=== PATIENT | male | born 1985 | race Caucasian/White ===

== ENCOUNTER 2017-01-05 19:09 | Emergency (ER) | payer SELFPAY ==
[~2017-01-05] VITALS: Ht 177.8 cm; Wt 74.8 kg
[~2017-01-05 19:09] MED LIST: FLUO20CA9 PO; OLAN10TA2 PO
[2017-01-05] MEDS ORDERED: FLUoxetine 10 MG CAP PO ONE (20:15)
[2017-01-05] MEDS ORDERED: OLANZapine 10 MG TAB PO ONE (20:15)
[2017-01-05] MEDS ORDERED: OLAN10TA2 PO (20:25)
[2017-01-05] MEDS ORDERED: FLUO20CA9 PO (20:25)
[2017-01-05 20:31] VITALS: BP 126/81
== END 2017-01-05 20:32 | disposition home or self-care (01) ==
LOC: M ED 20:19
DX: Z76.0 Encounter for issue of repeat prescription (principal); Z91.14 Patient's other noncompliance with medication regimen

== ENCOUNTER 2017-01-09 13:01 | Inpatient (IN) | payer OTHER, SELFPAY ==
[~2017-01-09] VITALS: Ht 180.3 cm; Wt 80.9 kg
--- NOTE | 2017-01-09 13:57 | REP ---
Head CT without contrast: History: Altered mental status. Comparison study: May 14, 2016. CT findings: Bone window settings demonstrate an intact bony calvarium. There is no evidence of skull fracture or incidental bony calvarial lesion. The visualized paranasal sinuses appear clear. No intraorbital abnormality is seen. On soft tissue window setting images; the lateral, third, and fourth ventricles are normal in size and position. Lei-white differentiation pattern is normal above and below the tentorium. There are is no evidence of intracranial hemorrhage. No mass, edema, infarction, or midline shift is seen. No extra-axial fluid collection is appreciated. Impression: Negative noncontrast head CT. Signed by yTler Boston MD 01/09/2017 01:49 P
[2017-01-09 14:03] LABS: MEAN CORPUSCULAR HEMOGLOBIN 32.5 pg (27.0-33.0); MEAN CORPUSCULAR HGB CONC 35.7 g/dl (32.0-36.5); MEAN CORPUSCULAR VOLUME 90.9 fl (80.0-96.0); WHITE BLOOD COUNT 6.1 K/mm3 (4.0-10.0)
[2017-01-09 14:29] LABS: METHADONE URINE NEGATIVE (NEGATIVE)
[2017-01-09 14:37] LABS: ALBUMIN 4.8 GM/DL (3.2-5.2); ALBUMIN/GLOBULIN RATIO 1.41 (1.00-1.93); ALKALINE PHOSPHATASE 61 U/L (45-117); ALT/SGPT 22 U/L (12-78); ANION GAP 9 MEQ/L (8-16); AST/SGOT 20 U/L (15-37); BILIRUBIN,DIRECT 0.3 MG/DL (0.0-0.2); BILIRUBIN,TOTAL 1.3 MG/DL (0.2-1.0); BLOOD UREA NITROGEN 23 MG/DL (7-18); CALCIUM LEVEL 9.7 MG/DL (8.5-10.1); CARBON DIOXIDE LEVEL 28 MEQ/L (21-32); CHLORIDE LEVEL 103 MEQ/L (98-107); CREATININE FOR GFR 1.23 MG/DL (0.70-1.30); GLOMERULAR FILTRATION RATE > 60.0 (>60); GLUCOSE, FASTING 96 MG/DL (70-105); POTASSIUM SERUM 4.4 MEQ/L (3.5-5.1); SODIUM LEVEL 140 MEQ/L (136-145); TOTAL PROTEIN 8.2 GM/DL (6.4-8.2)
[2017-01-09] MEDS ORDERED: CIPROFLOXACIN 500 MG TAB PO ONE (23:45)
[2017-01-10] MEDS ORDERED: FLUoxetine 10 MG CAP PO ONE (08:15)
[2017-01-10] MEDS ORDERED: SERTRALINE HCL 50 MG TAB PO ONE (09:00)
[2017-01-10] MEDS ORDERED: MAALOX 30 ML SUSP *UDC PO PRN (12:00)
[2017-01-10] MEDS ORDERED: ACETAMINOPHEN TAB 650MG DOSE (2X325MG) PO PRN (12:00)
[2017-01-10] MEDS ORDERED: traZODone 50 MG TAB PO PRN (12:00)
[2017-01-10] MEDS ORDERED: LORazepam 1 MG TAB PO PRN (12:00)
[2017-01-10] MEDS ORDERED: MOM 30ML SUSPENSION UDC PO PRN (12:00)
[2017-01-10] MEDS ORDERED: FLUO10TA2 PO (12:26)
[2017-01-10] MEDS ORDERED: OLAN10TA2 PO (12:26)
[2017-01-10 14:30] VITALS: BP 136/79
--- NOTE | 2017-01-10 20:09 | ECGEPIP ---
Stationary ECG Study [facility] - ED Test Date: 2017-01-09 Pat Name: DEBBIE RUSSELL Department: Room: - Gender: M Vp Communications: LIDIA : [id number] Requested By: Rukhsana Castano Order Number: [id number] Reading MD: Hai Cross Measurements Intervals Elmer Rate: 57 P: 57 ME: 96 QRS: 64 QRSD: 98 T: 33 QT: 415 QTc: 406 Interpretive Statements SINUS BRADYCARDIA WITH SHORT ME INTERVAL ST ELEVATION DIFFUSE - PROBABLY EARLY REPOLARIZATION 05/16/16 - RATAE DECREASED Electronically Signed On 01-10-2017 20:09:26 EDT by Hai Cross
[2017-01-11 06:34] VITALS: BP 143/77
[2017-01-11] MEDS ORDERED: SERTRALINE HCL 50 MG TAB PO SCH (09:00)
--- NOTE | 2017-01-11 09:39 | HPEPDOC ---
Medical History and Physical Date of Admission January 10, 2017 at 11:55 History and Physical PCP: FLOR De La O. ATTENDING: Dr. Keon Espinoza HPI: 31yoM admitted to [facility] for MDD with psychosis, being medically examined today. Patient is slow to answer questions, but does provide limited history. Is also taken from the chart, as per records he has been noncompliant with his medications for several weeks. He reports no acute medical complaints today. Denies any fevers, chills, weakness, fatigue, HERNÁNDEZ, CP, SOB, cough, palpitations, abdominal pain, N/V/D or changes in bowel or bladder habits. PMHx: MDD with psychotic features PTSD Dissociative amnesia History of concussion 2015 Right lower extremity fracture PSHX: Right inguinal hernia repair [place] teeth extraction SOCHX: Resides in: [facility] Marital Status: Kids: 2 Employment: Reservist, [employer]. Tobacco use: Denies ETOH: Denies Illicit Drugs: Denies IV Drug Use: Denies Tattoos done unprofessionally: Denies FAMHX: Mother: Alive, well Father: Alive, well Siblings: Alive, well Children: Alive, well Unexpected deaths due to medical reasons: None. ROS: As noted in HPI, otherwise 11pt ROS of systems reviewed and unremarkable. PE: GEN: 31yoM, appears stated age. Well-nourished, well developed. No acute distress. Alert. Oriented to PPT. Pt is slow to answer questions, easily distracted. HEENT: Normocephalic, atraumatic. Pupils are equal, round, and reactive to light. Extraocular movements are intact. No nystagmus appreciated. Sclera are nonicteric. Conjunctiva without injection. Nose midline. Nasal turbinates without bogginess. EACs both patent BL. TMs both visualized and jackson with good cone of light, no bulging or erythema. No facial asymmetry. Moist mucous membranes. Dentition fair. Pharynx pink and moist, no cobblestoning. Neck supple , trachea midline. No lymphadenopathy or thyromegaly appreciated. CHEST: Regular rate and rhythm, +S1, +S2 LUNGS: Clear to auscultation bilaterally. No wheezes, rales, or rhonchi. Breathing appears symmetric and easy. Patient is speaking in full sentences. No accessory muscle use. ABD: Round, soft, non-tender, non-distended. +Bowel sounds throughout. No rebound or guarding. No costovertebral angle tenderness. EXT: Pulses 2+ bilaterally dorsalis pedis and radial. No lower extremity edema appreciated. SKIN: [place], dry, warm. Capillary refill <2sec. No rashes. NEURO: Alert and oriented x 3. Cranial nerves III-XII are intact. No focal deficits appreciated. EK01/09/17 SINUS BRADYCARDIA WITH SHORT CA INTERVAL ST ELEVATION DIFFUSE - PROBABLY EARLY REPOLARIZATION CT brain 05/14/16. No acute changes. MRI Brain 05/16/16. No gross abnormality. Significantly limited exam A&P: 31yoM admitted to [facility] for MDD with psychosis 1. Psych. Plan per Psychiatry. EKG on file. CT brain 05/19 was completed indicating no acute changes. MRI Brain 05/19 no gross abnormality, limited exam. 2. Follow up with PCP on discharge. 3. Fahad system safety manager present throughout exam. Vital Signs Vital Signs Date Time Temp Pulse Resp B/P (MAP) Pulse Ox O2 Delivery O2 Flow Rate FiO2 01/11/17 06:34 99.1 78 78 143/77 (99) 01/10/17 14:12 97 Room Air Laboratory Data Labs 24H Item Value Date Time Sodium Level 140 MEQ/L 01/09/17 1351 Potassium Level 4.4 MEQ/L 01/09/17 1351 Chloride Level 103 MEQ/L 01/09/17 1351 Carbon Dioxide Level 28 MEQ/L 01/09/17 1351 Anion Gap 9 MEQ/L 01/09/17 1351 Blood Urea Nitrogen 23 MG/DL H 01/09/17 1351 Creatinine 1.23 MG/DL 01/09/17 1351 Glomerular Filtration Rate > 60.0 01/09/17 1351 Fasting Glucose 96 MG/DL 01/09/17 1351 Calcium Level 9.7 MG/DL 01/09/17 1351 Total Bilirubin 1.3 MG/DL H 01/09/17 1351 Direct Bilirubin 0.3 MG/DL H 01/09/17 1351 Aspartate Amino Transf (AST/SGOT) 20 U/L 01/09/17 1351 Alanine Aminotransferase (ALT/SGPT) 22 U/L 01/09/17 1351 Alkaline Phosphatase 61 U/L 01/09/17 1351 Ammonia 20 uMOL/L 01/09/17 1351 Total Protein 8.2 GM/DL 01/09/17 1351 Albumin 4.8 GM/DL 01/09/17 1351 Albumin/Globulin Ratio 1.41 01/09/17 1351 Thyroid Stimulating Hormone (TSH) 0.794 uIU/ML 01/09/17 1351 White Blood Count 6.1 K/mm3 01/09/17 1351 Red Blood Count 5.23 M/mm3 01/09/17 1351 Hemoglobin 17.0 g/dl 01/09/17 1351 Hematocrit 47.5 % 01/09/17 1351 Mean Corpuscular Volume 90.9 fl 01/09/17 1351 Mean Corpuscular Hemoglobin 32.5 pg 01/09/17 1351 Mean Corpuscular Hemoglobin Concent 35.7 g/dl 01/09/17 1351 Red Cell Distribution Width 13.0 % 01/09/17 1351 Platelet Count 248 k/mm3 01/09/17 1351 Salicylates Level < 1.7 MG/DL L 01/09/17 1351 Urine Opiates Screen NEGATIVE 01/09/17 1351 Urine Methadone Screen NEGATIVE 01/09/17 1351 Acetaminophen Level < 2.0 UG/ML L 01/09/17 1351 Urine Barbiturates Screen NEGATIVE 01/09/17 1351 Urine Phencyclidine Screen NEGATIVE 01/09/17 1351 Urine Amphetamines Screen NEGATIVE 01/09/17 1351 Urine Benzodiazepines Screen NEGATIVE 01/09/171 Urine Cocaine Metabolite Screen NEGATIVE 01/09/17 1351 Urine Cannabinoids Screen NEGATIVE 01/09/171 Ethyl Alcohol Level < 0.003 % 01/09/17 1351 Home Medications Scheduled Fluoxetine HCl (Fluoxetine HCl) 10 Mg Tab, 30 MG PO DAILY Olanzapine (Olanzapine) 10 Mg Tab, 10 MG PO QHS Allergies Coded Allergies: Sulfa Drugs (Verified Allergy, Mild, RASH, 01/05/17) Sulfa Drugs Cross Reactors (Verified Allergy, Mild, RASH, 01/05/17) Ibeth Anaya January 11, 2017 09:39
[2017-01-11] MEDS: risperiDONE 2 MG TAB PO SCH ×2 (10:27→21:21)
[2017-01-11] MEDS: FLUoxetine 20 MG CAP PO SCH (10:28)
[2017-01-11 18:00] VITALS: BP 143/70
--- NOTE | 2017-01-11 21:03 | MHHPE ---
DATE OF ADMISSION: 01/10/2017 LEGAL STATUS AT ADMISSION: 9.39 legal status. 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 Patient was admitted in our unit on a 9.39 legal status. According to the chart, patient was to be evaluated at the [place] [facility] but they had problems finding the patient, they were originally unable to locate him. It is reported by the that the patient has been exhibiting increasingly bizarre behavior over the last several days. He has been noncompliant with the medication for several weeks. She reported that he was lying on the ground, curled up, and screaming incoherently. His stated that he has not slept in 3 days, has not been eating, and that he wanders off in a state of confusion. During the interview, patient is described as staring blankly and barely able to answer questions. They were unable to fully assess the patient and appeared to be responding to internal stimuli with delayed answers to the questions. Here in the unit, patient continues to display thought blocking with significant delays in response, but he is able to tell that he has been having auditory hallucinations for about a week. It is difficult for him to describe the voices, but some examples are "pick it up," "move faster." The patient denies command auditory hallucinations of telling him to kill himself or other people. The patient also admits that he is afraid that he may be hurt by "people" but he is not sure who these people would be. Patient also admits to hear voices of "moravian content" or "screwed up things." Patient was partially cooperative during the interview. He was distressed and scanning the surroundings. The patient appeared to be responding to internal stimuli. When asked about feelings of depression, he says that he has been feeling depressed for the last 2 weeks, feeling sorry for himself, with low energy, low appetite. He says that his sleep is okay and his self-esteem is fine. He denies any suicidal thoughts. Patient also reported that he stopped taking his medication around 3 months ago because of "weight gain" and also "feeling better." Patient is displaying psychomotor retardation and blunted affect. Patient is unable to provide many details of the history since he is actively psychotic and has significant delay on every response and also has thought blocking. Some of the information is gathered from the chart and history provided from relatives. PAST MEDICAL HISTORY: Patient denied any acute medical problems. ALLERGIES: SULFA. PAST PSYCHIATRIC HISTORY: As above, patient has been diagnosed with major depressive disorder with psychotic features. This is his fourth psychiatric admission to our facility. He has been diagnosed with PTSD and dissociative amnesia by the [place] [facility] as stated in the chart. SOCIAL HISTORY: Patient is a poor historian. Displaying thought blocking. He was born in [place]. He has moved around frequently because his parents were in the . Reported normal childhood. He graduated high school and joined the [employer] at age 18. Patient denied any history of traumatic events, like sexual, physical, or emotional abuse. SUBSTANCE ABUSE HISTORY: Patient denies any current or past problems with drugs or alcohol. Patient is now in the [employer]. He is and has a supportive . REVIEW OF SYSTEMS: CONSTITUTIONAL; No weight loss, fever, chills, weakness, or fatigue. HEENT: No visual loss, blurry vision, double vision, or yellow sclerae. No hearing loss, sneezing, congestion, runny nose, or sore throat. SKIN: No rash or itching. CARDIOVASCULAR: No chest pain, chest pressure, chest discomfort, palpitations, or edema. RESPIRATORY: No shortness of breath, cough, or sputum. GASTROINTESTINAL (GI): No anorexia, nausea, vomiting, or diarrhea. No abdominal pain or blood. GENITOURINARY (): No burning or pain on urination. NEUROLOGICAL: No headache, dizziness, syncope, paralysis, ataxia, numbness, or tingling. MUSCULOSKELETAL: No muscle, back pain, joint pain, or stiffness. HEMATOLOGIC: No anemia, bleeding, or bruising. LYMPHATICS: No history of splenectomy. ENDOCRINOLOGIC: No reports or sweating, cold or heat intolerance. No polyuria or polydipsia. ALLERGIES: No history of asthma, hives, eczema, or rhinitis. Patient is allergic to SULFA. LABORATORY DATA: At admission: CBC is unremarkable. CMP within normal limits except BUN of 23, total bilirubin of 1.3, direct bilirubin of 0.3, rest within normal limits. TSH within normal limits. Urine drug screen (UDS) is negative. Blood alcohol level is negative. MENTAL STATUS EXAMINATION: Patient is dressed in [facility]. Patient is cooperative, but guarded, distressed, reacting to internal stimuli, displaying thought blocking. Mood is depressed and anxious. Affect is blunted. Patient is oriented to time, place, person and situation. Attention and concentration is poor. Memory cannot be tested. Thought process, as above, patient is displaying thought blocking. Patient admits to paranoia, patient also admits to auditory hallucinations. Patient denies homicidal or suicidal ideation. Judgment and insight are poor. DIAGNOSES: AXIS I: Major depressive disorder with psychotic features. AXIS II: Deferred. AXIS III: None acute. INITIAL TREATMENT PLAN: Patient was admitted on a 9.39 legal status. Complete history was obtained. With his permission, family will be contacted and database will be expanded. His medication regimen will be reviewed and changed accordingly. He will be provided with protected environment. He will be treated with individual, group, and milieu therapies. He will also receive supportive psychoeducation. Discharge planning will commence immediately. Length of stay will be between 7-10 days. Outpatient followup will be strongly recommended. The treatment plan will focus initially on depression, risk for suicide, altered thoughts, altered perceptions.
[2017-01-11] MEDS: QUEtiapine FUMARATE 25 MG TAB PO SCH (21:21)
[2017-01-12 06:13] VITALS: BP 139/74
[2017-01-12] MEDS: risperiDONE 2 MG TAB PO SCH ×2 (08:20→20:34)
[2017-01-12] MEDS: FLUoxetine 20 MG CAP PO SCH (08:20)
[2017-01-12 18:00] VITALS: BP 109/57
[2017-01-12] MEDS: QUEtiapine FUMARATE 25 MG TAB PO SCH (20:34)
--- NOTE | 2017-01-12 21:25 | IPN ---
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 The patient also has been diagnosed of posttraumatic stress disorder (PTSD) and dissociative amnesia at the [facility]. The patient was paranoid, psychotic and having auditory hallucinations. The patient is responding to internal stimuli and displaying thought blocking. SUBJECTIVE: "I am about the same." OBJECTIVE: There are no changes from yesterday at admission, although it seems that the degree of thought blocking has decreased. The patient continues to have auditory hallucinations and has reported mild nausea secondary to the medication. MENTAL STATUS EXAMINATION: The patient is dressed in [facility]. The patient is cooperative. Has poor eye contact. Speech is slow with thought blocking. Mood is depressed. Affect is blunted. The patient reports auditory hallucinations. The patient continues to feel some degree of paranoia and danger in the unit. The patient is able to contract for safety. The patient's concentration and memory are affected. Insight and judgment are poor. ASSESSMENT: Major depressive disorder with psychotic features. PLAN: 1. Continue Prozac 20 mg by mouth every morning. 2. Continue with Risperdal 2 mg by mouth twice a day. 3. Continue with Seroquel 25 mg by mouth at bedtime. 4. Continue close monitoring.
[2017-01-13 06:40] VITALS: BP 117/68
[2017-01-13] MEDS: risperiDONE 2 MG TAB PO SCH ×2 (08:43→21:00)
[2017-01-13] MEDS: FLUoxetine 20 MG CAP PO SCH (08:43)
[2017-01-13 18:00] VITALS: BP 112/58
[2017-01-13] MEDS: QUEtiapine FUMARATE 25 MG TAB PO SCH (21:00)
[2017-01-14 06:23] VITALS: BP 111/60
[2017-01-14] MEDS: FLUoxetine 20 MG CAP PO SCH (08:12)
[2017-01-14] MEDS: risperiDONE 2 MG TAB PO SCH ×2 (08:12→20:53)
--- NOTE | 2017-01-14 13:01 | IPN ---
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 The patient also has been diagnosed of posttraumatic stress disorder (PTSD) and dissociative amnesia at [facility]. The patient was paranoid, psychotic, having auditory hallucinations. The patient is responding to internal stimuli and displaying thought blocking. SUBJECTIVE: "I am feeling a little better." OBJECTIVE: The patient is improving very slowly. His thought blocking is decreasing. The latency between question and answer has decreased significantly. The patient continues to have auditory hallucinations, although the psychotic symptoms are decreasing. No side effects from medication. MENTAL STATUS EXAMINATION: The patient is dressed in [facility]. The patient is cooperative. Has poor eye contact. Speech is slow and monotone with thought blocking. Affect is blunted. The patient continues to report auditory hallucinations, although they are decreasing. The patient is less paranoid. The patient is able to contract for safety. The patient's concentration and memory are impaired. Insight and judgment are poor. ASSESSMENT: Major depressive disorder with psychotic features. PLAN: 1. Continue with Prozac 20 mg by mouth every morning. 2. Continue with Risperdal 2 mg by mouth twice a day. 3. Continue with Seroquel 25 mg by mouth nightly. 4. Continue with medication management, individual and group therapy.
[2017-01-14 18:00] VITALS: BP 114/56
[2017-01-14] MEDS: QUEtiapine FUMARATE 25 MG TAB PO SCH (20:53)
[2017-01-15 06:29] VITALS: BP 137/70
[2017-01-15] MEDS: FLUoxetine 20 MG CAP PO SCH (08:40)
[2017-01-15] MEDS: risperiDONE 2 MG TAB PO SCH ×2 (08:40→20:24)
[2017-01-15 18:00] VITALS: BP 129/60
--- NOTE | 2017-01-15 18:45 | IPN ---
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 The patient has been diagnosed with posttraumatic stress disorder (PTSD) and is a patient at the [facility]. The patient was paranoid, psychotic, having auditory hallucinations. The patient was responding to internal stimuli and displaying thought blocking. SUBJECTIVE: "I am feeling a little better." OBJECTIVE: The patient (mumbled dictation). Denies side effects from the medication. MENTAL STATUS EXAMINATION: The patient is dressed in [facility]. The patient is cooperative, has fair eye contact. Speech is slow and monotone with minimal thought blocking. Affect is blunted. The patient continues to be somewhat guarded but reports does not feel paranoid and denies auditory or visual hallucinations. The patient is able to contract for safety during the interview. Insight and judgment are poor. ASSESSMENT: 1. Major depressive disorder with psychotic features. PLAN: 1. Continue with Prozac 20 mg by mouth in the morning. 2. Risperdal 2 mg by mouth twice a day. 3. Discontinue Seroquel 25 mg by mouth at night. 4. Continue close observation.
--- NOTE | 2017-01-15 18:58 | IPN ---
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 Patient has been diagnosed of posttraumatic stress disorder (PTSD) and disassociative amnesia at [facility] Patient was paranoid, psychotic, having auditory hallucinations. Patient was responding to internal stimuli and displaying though blocking. SUBJECTIVE: "I'm feeling better." OBJECTIVE: Patient continues to improve slowly. His thought blocking is improved. Patient denies any auditory hallucinations for the last 24 hours. He denies side effects from the medication. Patient reports is sleeping well with the help of the treatment. MENTAL STATUS EXAMINATION: Patient is dressed in [facility]. Patient is cooperative, has fair eye contact. Speech is slow and monotone. Mood is depressed and anxious. Affect is restricted. Patient is denying auditory or visual hallucinations. No evidence of paranoid delusions. Memory is fair. Patient is fully oriented. Associations are intact. Thinking is logical. Thought content is appropriate. Patient is able to contract for safety and denies suicidal or homicidal ideation. Insight and judgment is fair. ASSESSMENT: Major depressive disorder. PLAN: 1. Continue with 2. Continue with Prozac 20 mg by mouth every morning. 3. Continue with Risperdal 2 mg by mouth twice a day. 4. Continue monitoring/continue medication management, individual and group therapy.
[2017-01-16 06:20] VITALS: BP 113/58
[2017-01-16] MEDS: risperiDONE 2 MG TAB PO SCH ×2 (08:47→20:16)
[2017-01-16] MEDS: FLUoxetine 20 MG CAP PO SCH (08:47)
--- NOTE | 2017-01-16 15:28 | IPN ---
DATE: 01/16/2017 A 32-year-old male admitted to our unit with psychotic symptoms and paranoia. The patient was having auditory hallucination. The patient was also responding to internal stimuli. SUBJECTIVE: "I'm feeling better." OBJECTIVE: The patient is improving slowly. His thought blocking has significantly improved from admission. His delay from question to answer is close to normal. The patient is denying auditory or visual hallucinations during the interview. The patient is denying side effects from the medication. MENTAL STATUS EXAMINATION: The patient is dressed in [facility]. The patient is cooperative. He has fair eye contact. Speech is slow and monotone. Mood is depressed and anxious. Affect is restricted. The patient is denying auditory or visual hallucinations. There are no feelings of paranoia. Memory is fair. The patient is fully oriented. Associations are intact. Thinking is logical. Thought content is appropriate. The patient is able to contract for safety during the interview. Insight and judgment is fair. ASSESSMENT: Major depressive disorder with psychotic features. PLAN: 1. Continue Prozac 20 mg by mouth in the morning. 2. Continue Risperdal 2 mg by mouth twice a day. 3. Continue medication management, individual and group therapy.
[2017-01-16 18:21] VITALS: BP 134/70
[2017-01-17 06:22] VITALS: BP 123/63
[2017-01-17] MEDS: risperiDONE 2 MG TAB PO SCH ×2 (08:51→20:28)
[2017-01-17] MEDS: FLUoxetine 20 MG CAP PO SCH (08:51)
[2017-01-17 18:13] VITALS: BP 108/59
--- NOTE | 2017-01-17 22:33 | IPN ---
DATE: 01/17/2017 A 32-year-old male admitted to our unit with psychotic symptoms and paranoia. The patient was also having auditory hallucination and responding to internal stimuli. SUBJECTIVE: "I'm feeling better." OBJECTIVE: The patient is improving slowly. His affect and facial expression are blunted. The patient reports improvement from paranoia. The patient is denying auditory hallucinations. The patient admits that he was afraid that somebody can harm him when he came to the hospital. The patient is more comfortable. Affect is restricted. No auditory or visual hallucinations. The patient's paranoia has improved. Memory is fair. The patient is fully oriented. The patient is able to contract for safety during the interview. Insight and judgment is fair. ASSESSMENT: Major depressive disorder with psychotic features. PLAN: 1. Continue Prozac 20 mg by mouth in the morning. 2. Continue Risperdal 2 mg by mouth twice a day. 3. Continue medication management, individual and group therapy.
[2017-01-18 06:36] VITALS: BP 126/60
[2017-01-18] MEDS: risperiDONE 2 MG TAB PO SCH ×2 (09:33→21:15)
[2017-01-18] MEDS: FLUoxetine 20 MG CAP PO SCH (09:33)
--- NOTE | 2017-01-18 16:17 | IPN ---
DATE: 01/18/2017 32-year-old male admitted with paranoia. The patient was having auditory hallucinations and responding to internal stimuli. SUBJECTIVE: "I am feeling much better". OBJECTIVE: The patient has no complications, is tolerating well the medication and is motivated for treatment. The patient reports no mood fluctuation lately. He has been diagnosed of depression with psychotic features. However, at this time has no significant mood symptoms. The patient denies auditory or visual hallucinations during the interview. His paranoia has significantly improved. His insight and judgment also improved. ASSESSMENT: Major depressive disorder with psychotic features. Rule out schizoaffective disorder. PLAN: 1. Continue with Prozac 20 mg by mouth every a.m. 2. Continue Risperdal 2 mg by mouth twice a day. 3. Continue medication management, individual and group therapy.
[2017-01-18 18:00] VITALS: BP 117/56
[2017-01-19 06:38] VITALS: BP 127/71
[2017-01-19] MEDS: risperiDONE 2 MG TAB PO SCH ×2 (09:03→20:45)
[2017-01-19] MEDS: FLUoxetine 20 MG CAP PO SCH (09:03)
[2017-01-19 18:16] VITALS: BP 117/59
--- NOTE | 2017-01-19 21:41 | IPN ---
DATE: 01/19/2017 A 32-year-old male admitted with paranoia, auditory hallucinations, and responding to internal stimuli. SUBJECTIVE: "I'm feeling better." OBJECTIVE: Patient continues improving. Patient is tolerating well the medication. Patient appears to be more insightful. His facial expression and affect are blunted; however, he has no longer thought blocking, and his latency between question and answer has been normalized. MENTAL STATUS EXAMINATION: Patient is dressed in [facility]. Patient is cooperative. Has fair eye contact. Patient is slow and monotone. Mood is slightly depressed and anxious. Affect is restricted, blunted. Patient denies auditory or visual hallucinations. Patient denies feelings of paranoid. Patient is able to contract for safety during the interview. Insight and judgment are limited. ASSESSMENT: 1. Major Depression with psychotic features 2. Rule out schizoaffective disorder. PLAN: 1. Continue Prozac 20 mg by mouth every morning. 2. Continue Risperdal 2 mg by mouth twice a day. 3. Continue medication management, individual and group therapy. [facility]
[2017-01-20 06:10] VITALS: BP 110/69
[2017-01-20] MEDS: FLUoxetine 20 MG CAP PO SCH (08:29)
[2017-01-20] MEDS: risperiDONE 2 MG TAB PO SCH ×2 (08:29→20:54)
[2017-01-20 18:17] VITALS: BP 120/60
[2017-01-21 06:25] VITALS: BP 129/66
[2017-01-21] MEDS: risperiDONE 2 MG TAB PO SCH ×2 (08:18→20:11)
[2017-01-21] MEDS: FLUoxetine 20 MG CAP PO SCH (08:18)
[2017-01-21 18:00] VITALS: BP 112/60
[2017-01-22 06:26] VITALS: BP 131/66
[2017-01-22] MEDS: FLUoxetine 20 MG CAP PO SCH (09:22)
[2017-01-22] MEDS: risperiDONE 2 MG TAB PO SCH (09:22)
[2017-01-22] MEDS ORDERED: RISP2TAB3 PO (10:53)
[2017-01-22] MEDS ORDERED: FLUO20CA9 PO (10:53)
--- NOTE | 2017-01-22 19:00 | MHDS ---
DATE OF ADMISSION: 01/10/2017 DATE OF DISCHARGE: 01/22/2017 LEGAL STATUS AT ADMISSION: 9.39 legal status. 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 He also stated that he has been diagnosed with posttraumatic stress disorder (PTSD) and dissociative amnesia at the [facility] in [place]. Patient was admitted in out unit on a 9.39 legal status. According to the chart, patient was evaluated at the [place] [facility] and sent to our emergency department for evaluation. His reported that patient had been increasingly displaying bizarre behavior over the last several days, has been noncompliant with his psychotropic medications for several weeks. She reported that he had been lying on the ground curled up and screaming incoherently. His stated that he had not slept in three days, had not been eating and that he wonders off in a state of confusion. During the interview, patient was described as staring blankly and barely able to answer questions and indeed, they were not fully able to assess him. Patient appeared to respond to internal stimuli with very delayed period of time between answer and question. Here in our unit, patient continued to display thought blocking and significant delay between question and answer. Patient admitted that he had been having auditory hallucinations for about a week, had difficulty describing this, that at times he hears "pick it up," "move faster." Patient denied command auditory hallucinations, although the above appear to be voices that tell him what to do in the night. The voices are telling him to do are dangerous. He said that the voices at times are mandaen in content and "screwed up things." He was distressed and scanning the surroundings. He appeared to be responding to internal stimuli. When asked about his depression, he admits feeling depressed for the last two weeks, feeling sorry for himself, with very low energy, low appetite. He said that his sleep was fair and has a fine self-esteem. He was denying suicidal thoughts. He reported that he stopped taking his medications about three months ago because of weight gain and also because he was feeling better. Patient was displaying psychomotor retardation and blunted affect during the interview today. He is unable to provide many details of the history. LABORATORIES AT ADMISSION: Complete blood count (CBC) was within normal limits. Complete metabolic panel (CMP) was unremarkable except BUN 23, total bilirubin 1.3. The rest were within normal limits. Thyroid stimulating hormone (TSH) was within normal limits. Urine drug screen was negative. Blood alcohol level was negative. HOSPITAL COURSE: After the first evaluation, patient was started on Prozac 20 mg by mouth every morning. This medication was part of his treatment from his last hospitalization and outpatient management. He also was started on Risperdal 2 mg by mouth twice a day. With these medications, patient was stabilized. Patient improved slowly, but steadily. Patient did not feel that the medication was increasing his appetite. By the end of his hospitalization, I asked him if he was feeling depressed at admission and he said that his mood was fine. That contradicted the first initial impression. He has been diagnosed with major depressive disorder with psychotic features, but now, in light of no mood disorder, he may suffer from a schizoaffective disorder, since most of his symptoms at this time have been psychotic in nature. By the end of the hospitalization, the patient is significantly improved. Patient is denying suicidal or homicidal ideation. His auditory hallucinations, paranoia, and thought blocking has resolved. Patient is denying side effects from the medication. Patient is motivated for treatment and is willing to follow up recommendations. He is discharged on 01/22/2017. MENTAL STATUS EXAMINATION AT DISCHARGE: Patient is dressed in [facility]. Patient is calm and cooperative. Speech is somewhat slow, but coherent and spontaneous. Has fair eye contact. Mood is euthymic. Affect is somewhat restricted. Patient is oriented to time, place, person and situation. Maintains attention and concentration correctly. Instant recall and remote memory intact. Thought processes are current, logical and goal-directed. Patient does not have auditory or visual hallucinations. Patient does not have paranoid, persecutory, somatically induced or mandaen delusions. Patient is denying suicidal or homicidal ideation. Judgment and insight are fair. DISCHARGE DIAGNOSES: AXIS I: Schizoaffective disorder. AXIS II: Deferred. AXIS III: Nonacute. INSTRUCTIONS TO THE PATIENT: Patient is to continue taking his medications as prescribed and follow up appointments. He is advised to maintain absolute sobriety from drugs and alcohol. Patient has scheduled appointment for psychotropic medication management, individual psychotherapy and primary care physician.
== END 2017-01-22 12:40 | disposition home or self-care (01) | DRG 885 ==
LOC: M ED 13:40 → M ED INP 01-10 11:55 → M PSY 01-10 14:45
PROVIDERS: ADMIT Psychiatry & Neurology Psychiatry; ATTEND Psychiatry & Neurology Psychiatry
DX: F25.9 Schizoaffective disorder, unspecified (principal)